=== PATIENT | female | born 1970 | race Caucasian/White ===

== ENCOUNTER 2016-09-28 16:24 | Emergency (ER) | payer OTHER ==
[~2016-09-28] VITALS: Ht 160 cm; Wt 71.7 kg
[2016-09-28 16:29] VITALS: BP 143/56
[2016-09-28] MEDS ORDERED: NAPROSYN500 MG PO (17:49)
== END 2016-09-28 18:20 | disposition home or self-care (01) ==
LOC: EME 16:24
DX: M25.561 Pain in right knee (principal); M25.461 Effusion, right knee
CPT/HCPCS: 73564; 99281; 99284

== ENCOUNTER 2016-10-04 21:19 | Emergency (ER) | payer OTHER ==
[~2016-10-04] VITALS: Ht 160 cm; Wt 72.8 kg
[~2016-10-04 21:19] MED LIST: NAPROSYN500 MG PO
[2016-10-04 22:21] LABS: ADD MIUA? NO; BILIRUBIN NEGATIVE; BLOOD NEGATIVE; COLOR YELLOW ((YELLOW)); GLUCOSE (STRIP) NEGATIVE; KETONES NEGATIVE; LEUKOCYTES NEGATIVE; NITRITE NEGATIVE; PROTEIN (STRIP) NEGATIVE; SPECIFIC GRAVITY 1.018 (1.000-1.030); UCUL ADDED? NO; UROBILINOGEN 0.2 MG/DL (0.2-1.0)
[2016-10-04 23:27] LABS: HEMATOCRIT 33.5 % (36.0-46.0); MCH 28.4 PG (29.0-34.0); MCHC 32.5 G/DL (30.0-36.0); MCV 87.2 FL (83-99); MEAN PLAT.VOLUME 9.4 uM^3 (9.5-12.4); PLATELET COUNT 275 K/uL (156-360); RBC DIS.WIDTH-CV 14.9 % (11.8-14.6); RBC DIS.WIDTH-SD 47.8 % (39-53); RED BLOOD COUNT 3.84 M/uL (3.80-5.20); WHITE BLOOD COUNT 5.6 K/uL (4.1-10.2)
[2016-10-04 23:43] LABS: CHLORIDE 104 mEq/L (99-109); POTASSIUM 3.5 mEq/L (3.7-5.4); SODIUM 141 mEq/L (136-147)
[2016-10-04 23:46] LABS: GLUCOSE 109 mg/dL (70-99)
[2016-10-04 23:47] LABS: ANION GAP 11 MEQ/L (2-14)
[2016-10-04 23:48] LABS: TOTAL BILIRUBIN 0.2 mg/dL (0.0-1.0)
[2016-10-04 23:49] LABS: ALKALINE PHOSPHATASE 79 IU/L (3-129); GFR ESTIMATE (CALCULATED) > 59 mL/min/; SERUM ETHYL ALCOHOL < 10 mg/dL
[2016-10-04 23:51] LABS: UREA NITROGEN (BUN) 13 mg/dL (9-23)
[2016-10-04 23:53] LABS: LIPASE 5 U/L (1.0-51.0)
[2016-10-05 00:52] VITALS: BP 142/95
[2016-10-06] MEDS ORDERED: ZOFRAN ODT4 MG PO (01:29)
== END 2016-10-05 00:54 | disposition home or self-care (01) ==
LOC: EME 21:19
PROVIDERS: Emergency Medicine
DX: N20.0 Calculus of kidney (principal); F17.200 Nicotine dependence, unspecified, uncomplicated
CPT/HCPCS: 74176; 80053; 81003; 83690; 85027; 99281; 99284; G0480

== ENCOUNTER 2016-10-05 21:48 | Emergency (ER) | payer OTHER ==
[~2016-10-05] VITALS: Ht 160 cm; Wt 72.5 kg
[2016-10-05 22:30] LABS: HEMATOCRIT 34.8 % (36.0-46.0); MCH 27.8 PG (29.0-34.0); MCHC 31.9 G/DL (30.0-36.0); MEAN PLAT.VOLUME 9.4 uM^3 (9.5-12.4); PLATELET COUNT 288 K/uL (156-360); RBC DIS.WIDTH-CV 14.7 % (11.8-14.6); RBC DIS.WIDTH-SD 47.4 % (39-53); WHITE BLOOD COUNT 5.5 K/uL (4.1-10.2)
[2016-10-05 22:40] LABS: CHLORIDE 106 mEq/L (99-109); POTASSIUM 3.8 mEq/L (3.7-5.4); SODIUM 140 mEq/L (136-147)
[2016-10-05 22:43] LABS: GLUCOSE 104 mg/dL (70-99)
[2016-10-05 22:44] LABS: ANION GAP 5 MEQ/L (2-14); TOTAL BILIRUBIN 0.2 mg/dL (0.0-1.0)
[2016-10-05 22:46] LABS: ALKALINE PHOSPHATASE 80 IU/L (3-129); GFR ESTIMATE (CALCULATED) > 59 mL/min/
[2016-10-05 22:47] LABS: UREA NITROGEN (BUN) 13 mg/dL (9-23)
[2016-10-05 22:50] LABS: LIPASE 9 U/L (1.0-51.0)
[2016-10-05 22:56] LABS: QUANTITATIVE HCG < 4.0 MIU/ML
[2016-10-06 00:07] LABS: ADD MIUA? YES; BILIRUBIN NEGATIVE; BLOOD NEGATIVE; COLOR YELLOW ((YELLOW)); GLUCOSE (STRIP) NEGATIVE; KETONES NEGATIVE; LEUKOCYTES NEGATIVE; NITRITE NEGATIVE; PROTEIN (STRIP) NEGATIVE; SPECIFIC GRAVITY 1.017 (1.000-1.030); UROBILINOGEN 0.2 MG/DL (0.2-1.0)
[2016-10-06 00:13] LABS: AMPHETAMINE NEGATIVE (500 ng/mL); BARBITURATES NEGATIVE (200 ng/mL); BENZODIAZEPINES NEGATIVE (150 ng/mL); COCAINE NEGATIVE (150 ng/mL); INTERNAL CONTROLS VALID? YES; METHADONE PRESUMPTIVE POSITIVE (200 ng/mL); METHAMPHETAMINE NEGATIVE (500 ng/mL); OPIATES (MORPHINE) NEGATIVE (100 ng/mL); OXYCODONE NEGATIVE (100 ng/mL); PHENCYCLIDINE NEGATIVE (25 ng/mL); PROPOXYPHENE NEGATIVE (300 ng/mL); THC CANNABINOIDS NEGATIVE (50 ng/mL); TRICYCLIC ANTIDEPRESSANTS NEGATIVE (300 ng/mL)
[2016-10-06 00:16] LABS: BACTERIA RARE /HPF; EPITHELIAL CELLS RARE /HPF; HYALINE CASTS 0-5 /LPF; MUCUS TRACE /LPF; RED BLOOD CELLS 0-5 /HPF (0-5); UCUL ADDED? NO; WHITE BLOOD CELLS 0-5 /HPF (0-5)
[2016-10-06 00:31] LABS: SERUM ETHYL ALCOHOL < 10 mg/dL
[2016-10-06] MEDS ORDERED: ZOFRAN ODT4 MG PO (01:29)
[2016-10-06 02:12] VITALS: BP 150/86
== END 2016-10-06 02:12 | disposition home or self-care (01) ==
LOC: EME 21:48
PROVIDERS: Physician Assistant
DX: R10.12 Left upper quadrant pain (principal); R11.2 Nausea with vomiting, unspecified; F17.200 Nicotine dependence, unspecified, uncomplicated
CPT/HCPCS: 74177; 80053; 81003; 83605; 83690; 84702; 85027; 99281; 99285; G0480; J2405; J7030

== ENCOUNTER 2016-10-08 10:53 | Emergency (ER) | payer OTHER ==
[~2016-10-08] VITALS: Ht 160 cm; Wt 71.6 kg
[~2016-10-08 10:53] MED LIST changes: +ZOFRAN ODT4 MG PO
[2016-10-08 11:45] LABS: HEMATOCRIT 36.3 % (36.0-46.0); MCH 27.4 PG (29.0-34.0); MCHC 31.7 G/DL (30.0-36.0); MCV 86.4 FL (83-99); MEAN PLAT.VOLUME 9.2 uM^3 (9.5-12.4); PLATELET COUNT 278 K/uL (156-360); RBC DIS.WIDTH-CV 14.5 % (11.8-14.6); RBC DIS.WIDTH-SD 46.1 % (39-53); WHITE BLOOD COUNT 5.9 K/uL (4.1-10.2)
[2016-10-08 12:10] LABS: ANION GAP 9 MEQ/L (2-14); CHLORIDE 105 MEQ/L (99-109); POTASSIUM 3.6 MEQ/L (3.7-5.4); SAMPLE HEMOLYSIS CHECK 0; SAMPLE ICTERIC CHECK 0; SAMPLE LIPEMIA CHECK 0; SODIUM 141 MEQ/L (136-147)
[2016-10-08 12:15] LABS: GFR ESTIMATE (CALCULATED) > 59 mL/min/; GLUCOSE 104 mg/dL (70-99); UREA NITROGEN (BUN) 18 mg/dL (9-23)
[2016-10-08 12:51] LABS: QUANTITATIVE HCG < 4.0 MIU/ML
[2016-10-08 14:44] LABS: TROP-I INTERPRETATION NEGATIVE; TROPONIN-I < 0.01 ng/mL (0.0-0.30)
[2016-10-08 15:38] VITALS: BP 144/87
== END 2016-10-08 15:39 | disposition home or self-care (01) ==
LOC: EME 10:53
PROVIDERS: Emergency Medicine
DX: R55 Syncope and collapse (principal); R10.9 Unspecified abdominal pain; R11.2 Nausea with vomiting, unspecified; R53.83 Other fatigue; R60.0 Localized edema; F17.200 Nicotine dependence, unspecified, uncomplicated
CPT/HCPCS: 71020; 80048; 84484; 84702; 85027; 93005; 99281; 99284

== ENCOUNTER 2016-11-04 10:44 | Emergency (ER) | payer OTHER ==
[~2016-11-04] VITALS: Ht 167.6 cm; Wt 74.5 kg
[2016-11-04 12:33] LABS: HEMATOCRIT 41.2 % (36.0-46.0); MCH 27.3 PG (29.0-34.0); MCHC 32.3 G/DL (30.0-36.0); MCV 84.6 FL (83-99); MEAN PLAT.VOLUME 9.8 uM^3 (9.5-12.4); PLATELET COUNT 233 K/uL (156-360); RBC DIS.WIDTH-CV 14.2 % (11.8-14.6); RED BLOOD COUNT 4.87 M/uL (3.80-5.20)
[2016-11-04 12:34] LABS: WHITE BLOOD COUNT 12.5 K/uL (4.1-10.2)
[2016-11-04 12:35] LABS: CHLORIDE 105 mEq/L (99-109); POTASSIUM 4.3 mEq/L (3.7-5.4); SODIUM 140 mEq/L (136-147)
[2016-11-04 12:37] LABS: GLUCOSE 117 mg/dL (70-99)
[2016-11-04 12:38] LABS: ANION GAP 11 MEQ/L (2-14)
[2016-11-04 12:39] LABS: TOTAL BILIRUBIN 0.3 mg/dL (0.0-1.0)
[2016-11-04 12:41] LABS: ALKALINE PHOSPHATASE 80 IU/L (3-129); GFR ESTIMATE (CALCULATED) > 59 mL/min/
[2016-11-04 12:42] LABS: UREA NITROGEN (BUN) 13 mg/dL (9-23)
[2016-11-04 12:44] LABS: LIPASE 18 U/L (1.0-51.0)
[2016-11-04 12:53] LABS: QUANTITATIVE HCG < 4.0 MIU/ML
[2016-11-04 15:51] LABS: ADD MIUA? YES; BILIRUBIN NEGATIVE; BLOOD SMALL; COLOR YELLOW ((YELLOW)); GLUCOSE (STRIP) NEGATIVE; KETONES NEGATIVE; LEUKOCYTES NEGATIVE; NITRITE NEGATIVE; PROTEIN (STRIP) NEGATIVE; SPECIFIC GRAVITY 1.028 (1.000-1.030); UROBILINOGEN 0.2 MG/DL (0.2-1.0)
[2016-11-04] MEDS ORDERED: OMEPRAZOLE20 M2 PO (16:00)
[2016-11-04] MEDS ORDERED: ZOFRAN ODT4 MG PO (16:00)
[2016-11-04 16:02] LABS: BACTERIA NONE SEEN /HPF; EPITHELIAL CELLS RARE /HPF; MUCUS TRACE /LPF; RED BLOOD CELLS 0-5 /HPF (0-5); UCUL ADDED? NO; WHITE BLOOD CELLS 0-5 /HPF (0-5)
[2016-11-04 16:16] VITALS: BP 126/74
== END 2016-11-04 16:27 | disposition home or self-care (01) ==
LOC: EME 10:44
DX: R11.10 Vomiting, unspecified (principal); R10.10 Upper abdominal pain, unspecified; I10 Essential (primary) hypertension; Z87.442 Personal history of urinary calculi; F17.200 Nicotine dependence, unspecified, uncomplicated
CPT/HCPCS: 74177; 76705; 80053; 81003; 83690; 84702; 85027; 99281; 99285; J2405; J7030; S0028

== ENCOUNTER 2017-01-28 11:37 | Emergency (ER) | payer OTHER ==
[~2017-01-28] VITALS: Ht 157.5 cm; Wt 72.2 kg
[~2017-01-28 11:37] MED LIST changes: +OMEPRAZOLE20 M2 PO
[2017-01-28 12:36] LABS: ADD MIUA? YES; BILIRUBIN NEGATIVE; BLOOD NEGATIVE; COLOR YELLOW ((YELLOW)); GLUCOSE (STRIP) NEGATIVE; KETONES NEGATIVE; LEUKOCYTES NEGATIVE; NITRITE NEGATIVE; PROTEIN (STRIP) NEGATIVE; SPECIFIC GRAVITY 1.013 (1.000-1.030); UROBILINOGEN 0.2 MG/DL (0.2-1.0)
[2017-01-28 12:39] LABS: BACTERIA NONE SEEN /HPF; EPITHELIAL CELLS RARE /HPF; MUCUS NONE SEEN /LPF; RED BLOOD CELLS 0-5 /HPF (0-5); UCUL ADDED? NO; WHITE BLOOD CELLS 0-5 /HPF (0-5)
[2017-01-28 12:57] LABS: HEMATOCRIT 37.1 % (36.0-46.0); MCH 27.7 PG (29.0-34.0); MCHC 32.1 G/DL (30.0-36.0); MCV 86.5 FL (83-99); MEAN PLAT.VOLUME 9.3 uM^3 (9.5-12.4); PLATELET COUNT 237 K/uL (156-360); RBC DIS.WIDTH-CV 14.7 % (11.8-14.6); RBC DIS.WIDTH-SD 47.5 % (39-53); RED BLOOD COUNT 4.29 M/uL (3.80-5.20)
[2017-01-28 13:08] LABS: CHLORIDE 105 mEq/L (99-109); SODIUM 139 mEq/L (136-147)
[2017-01-28 13:10] LABS: GLUCOSE 103 mg/dL (70-99)
[2017-01-28 13:11] LABS: ANION GAP 6 MEQ/L (2-14)
[2017-01-28 13:12] LABS: TOTAL BILIRUBIN 0.3 mg/dL (0.0-1.0)
[2017-01-28 13:13] LABS: ALKALINE PHOSPHATASE 125 IU/L (3-129)
[2017-01-28 13:14] LABS: GFR ESTIMATE (CALCULATED) > 59 mL/min/
[2017-01-28 13:15] LABS: UREA NITROGEN (BUN) 13 mg/dL (9-23)
[2017-01-28 13:17] LABS: LIPASE 10 U/L (1.0-51.0)
[2017-01-28 13:22] LABS: QUANTITATIVE HCG < 4.0 MIU/ML
[2017-01-28 13:26] LABS: TROP-I INTERPRETATION NEGATIVE; TROPONIN-I < 0.01 ng/mL (0.0-0.30)
[2017-01-28] MEDS ORDERED: METHADONE1 MG/1 ML PO (13:54)
[2017-01-28] MEDS ORDERED: FLUTICASONE P15.8 ML BOTH NARES (13:56)
[2017-01-28] MEDS ORDERED: GABAPENTIN300 MG PO (13:56)
[2017-01-28] MEDS ORDERED: VYVANSE50 MG PO (13:57)
[2017-01-28] MEDS ORDERED: GABAPENTIN800 MG PO ×2 (13:57→14:44)
[2017-01-28] MEDS ORDERED: BUPROPION XL150 MG PO (13:57)
[2017-01-28] MEDS ORDERED: WELLBUTRIN XL150 MG PO (14:44)
[2017-01-28] MEDS ORDERED: PROMETHAZINE HC25 M1 PO (14:55)
[2017-01-28 15:15] VITALS: BP 118/70
== END 2017-01-28 15:18 | disposition home or self-care (01) ==
LOC: EME 11:37
DX: R10.13 Epigastric pain (principal); R11.2 Nausea with vomiting, unspecified; R19.7 Diarrhea, unspecified; R06.02 Shortness of breath; Z87.442 Personal history of urinary calculi; F17.200 Nicotine dependence, unspecified, uncomplicated
CPT/HCPCS: 80053; 81003; 83690; 84484; 84702; 85027; 93005; 99281; 99285

== ENCOUNTER 2017-03-17 09:20 | Emergency (ER) | payer OTHER ==
[~2017-03-17] VITALS: Ht 160 cm; Wt 70.9 kg
[~2017-03-17 09:20] MED LIST changes: +BUPROPION XL150 MG PO; +FLUTICASONE P15.8 ML BOTH NARES; +GABAPENTIN300 MG PO; +GABAPENTIN800 MG PO; +METHADONE1 MG/1 ML PO; +PROMETHAZINE HC25 M1 PO; +VYVANSE50 MG PO; +WELLBUTRIN XL150 MG PO
[2017-03-17 12:15] LABS: CHLORIDE 105 mEq/L (99-109); POTASSIUM 3.3 mEq/L (3.7-5.4); SODIUM 141 mEq/L (136-147)
[2017-03-17 12:17] LABS: GLUCOSE 97 mg/dL (70-99)
[2017-03-17 12:19] LABS: ANION GAP 10 MEQ/L (2-14)
[2017-03-17 12:21] LABS: GFR ESTIMATE (CALCULATED) > 59 mL/min/
[2017-03-17 12:22] LABS: UREA NITROGEN (BUN) 16 mg/dL (9-23)
[2017-03-17] MEDS ORDERED: NEURONTIN600 MG PO (14:09)
[2017-03-17 14:13] VITALS: BP 142/78
== END 2017-03-17 14:17 | disposition home or self-care (01) ==
LOC: EME 09:20
PROVIDERS: Physician Assistant
DX: R59.0 Localized enlarged lymph nodes (principal); Z85.819 Personal history of malignant neoplasm of unspecified site of lip, oral cavity, and pharynx; F17.200 Nicotine dependence, unspecified, uncomplicated
CPT/HCPCS: 70491; 80048; 99281; 99284; J7040